=== PATIENT | female | born 1995 | race Caucasian/White ===

== ENCOUNTER 2016-10-23 00:03 | Emergency (ER) | payer OTHER ==
[~2016-10-23] VITALS: Ht 162.6 cm; Wt 58.0 kg
[~2016-10-23 00:03] MED LIST: DICY1TAB26 PO; PANT20 PO; SUCR1S PO; Z.0.BCPILL PO
[2016-10-23 00:08] VITALS: BP 114/73; PULSE 92; RESP 20; TEMP 98.3; O2SAT 100
[2016-10-23] MEDS ORDERED: CYCL1TAB29 PO (00:24)
[2016-10-23] MEDS ORDERED: DICL50TA3 PO (00:24)
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
[2016-10-23] MEDS ORDERED: IBUPROFEN 600 MG TAB PO ONE (01:30)
[2016-10-23] MEDS ORDERED: CYCLOBENZAPRINE HCL 10 MG TAB PO ONE (01:30)
== END 2016-10-23 01:48 | disposition home or self-care (01) ==
LOC: NEPB 00:03
DX: S93.402A Sprain of unspecified ligament of left ankle, initial encounter (principal); V43.52XA Car driver injured in collision with other type car in traffic accident, initial encounter; Y92.410 Unspecified street and highway as the place of occurrence of the external cause; S00.03XA Contusion of scalp, initial encounter; M79.645 Pain in left finger(s); F17.200 Nicotine dependence, unspecified, uncomplicated
CPT/HCPCS: 29130; 70450; 73140; 73590; 73610; 99284; E0113